=== PATIENT | female | born 1970 | race African-American/Black ===

== ENCOUNTER 2018-06-17 16:05 | Emergency (ER) | payer BC, OTHER ==
--- NOTE | 2018-06-17 17:19 | RAD ---
RIGHT SHOULDER THREE VIEWS: HISTORY: Right shoulder injury. FINDINGS: Acromioclavicular and glenohumeral alignment are maintained with mild osteophytosis. No acute fractu re, dislocation, or aggressive osseous erosions. IMPRESSION: No acute osseous abnormalities are demonstrated. POS: [facility]
== END 2018-06-17 18:02 | disposition home or self-care (01) ==
LOC: ERS 16:05
DX: M54.6 Pain in thoracic spine (principal); F17.210 Nicotine dependence, cigarettes, uncomplicated

== ENCOUNTER 2018-08-14 08:35 | Emergency (ER) | payer BC, OTHER, SELFPAY | END 2018-08-14 09:33 | disposition home or self-care (01) | LOC: ERS 08:35 | DX: R11.2 Nausea with vomiting, unspecified (principal); R19.7 Diarrhea, unspecified; F17.210 Nicotine dependence, cigarettes, uncomplicated | CPT/HCPCS: 99284 ==